=== PATIENT | female | born 1995 | race American Indian/Alaskan Native ===

== ENCOUNTER 2020-10-15 15:10 | Emergency (ER) | payer BC, OTHER ==
[2020-10-15 16:45] VITALS: BP 118/74
[2020-10-15] MEDS ORDERED: IBUPROFEN 800 MG TAB PO STA (16:55)
[2020-10-15] MEDS ORDERED: ACETAMINOPHEN 500 MG TAB PO STA (16:55)
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
== END 2020-10-15 18:46 | disposition home or self-care (01) ==
LOC: ED 15:10
DX: S05.12XA Contusion of eyeball and orbital tissues, left eye, initial encounter (principal); F17.200 Nicotine dependence, unspecified, uncomplicated; Z79.899 Other long term (current) drug therapy; V87.7XXA Person injured in collision between other specified motor vehicles (traffic), initial encounter; Y93.89 Activity, other specified; Y92.488 Other paved roadways as the place of occurrence of the external cause; Y99.8 Other external cause status
CPT/HCPCS: 70486; 99283